=== PATIENT | male | born 1995 | race Caucasian/White ===

== ENCOUNTER 2018-03-26 20:08 | Emergency (ER) | payer BC | END 2018-03-26 21:22 | disposition home or self-care (01) | LOC: D.ER 20:08 | DX: S99.922A Unspecified injury of left foot, initial encounter (principal); W22.8XXA Striking against or struck by other objects, initial encounter; Y93.89 Activity, other specified; Y92.89 Other specified places as the place of occurrence of the external cause; S90.112A Contusion of left great toe without damage to nail, initial encounter; J45.909 Unspecified asthma, uncomplicated ==